=== PATIENT | female | born 2000 | race Two or more races ===

== ENCOUNTER 2024-12-14 08:21 | Emergency (ER) | payer BC ==
[2024-12-14 09:04] LABS: BASOPHILS ABSOLUTE AUTO 0.05 K/uL (0.00-0.20); BASOPHILS PERCENT AUTO 0.6 % (0.0-2.0); EOSINOPHILS ABSOLUTE AUTO 0.14 K/uL (0.00-0.50); EOSINOPHILS PERCENT AUTO 1.6 % (0.0-5.0); IMMATURE GRAN ABSOLUTE AUTO 0.02 10^3/uL (0.00-0.04); IMMATURE GRAN PERCENT AUTO 0.2 % (0.0-0.4); LYMPHOCYTES ABSOLUTE AUTO 2.03 K/uL (0.50-3.50); LYMPHOCYTES PERCENT AUTO 23.8 % (10.0-50.0); MONOCYTES ABSOLUTE AUTO 0.53 K/uL (0.00-1.00); MONOCYTES PERCENT AUTO 6.2 % (2.0-14.0); NEUTROPHILS ABSOLUTE AUTO 5.75 K/uL (1.40-7.00); NEUTROPHILS PERCENT AUTO 67.6 % (45.0-80.0); PLATELET COUNT,PLT 243 K/uL (150-350); RED BLOOD CELL COUNT 4.36 M/uL (3.77-5.09); RED CELL DISTRIBUTION WIDTH 12.9 % (11.2-14.1); WHITE BLOOD CELL COUNT,WBC 8.5 K/uL (4.0-10.2)
[2024-12-14] MEDS: Lactated Ringers 1,000 ML IV ONE ×2 (09:14→10:15)
[2024-12-14 09:25] LABS: ALANINE AMINOTRANSFERASE,ALT 18 U/L (12-78); ASPARTATE AMNIOTRANSFERASE,AST 12 U/L (15-37); BILIRUBIN TOTAL 0.5 mg/dL (0.2-1.0); BLOOD UREA NITROGEN,BUN 7 mg/dL (7-18); CARBON DIOXIDE,CO2 23.7 mmol/L (21.0-32.0); CHLORIDE,CL 101 mmol/L (98-107); CREATININE 0.56 mg/dL (0.51-1.17); GLUCOSE RANDOM 81 mg/dL (70-99); POTASSIUM,K 3.3 mmol/L (3.5-5.1); PROTEIN TOTAL,TP 8.4 g/dL (6.4-8.2); SODIUM,NA 137 mmol/L (136-145)
[2024-12-14 09:26] LABS: ESTIMATED GFR 131 mL/min (>=60)
[2024-12-14] MEDS: Promethazine 25 MG/ML SDV IM ONE (10:12)
[2024-12-14] MEDS: Potassium Chloride 10 MEQ Tab.ER PO ONE (10:18)
== END 2024-12-14 11:30 | disposition home or self-care (01) ==
LOC: LL.ED 08:21
DX: O21.9 Vomiting of pregnancy, unspecified (principal); Z79.899 Other long term (current) drug therapy; Z3A.01 Less than 8 weeks gestation of pregnancy
CPT/HCPCS: 36415; 80053; 83735; 84703; 85025; 96360; 96361; 96372; 99283; 99284-25; A9270-GY; J2550; J7120